=== PATIENT | female | born 2000 | race Caucasian/White ===

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

== ENCOUNTER 2022-10-01 06:09 | Emergency (ER) | payer SELFPAY ==
[2022-10-01] MEDS ORDERED: Lactated Ringers 1,000 ML IV SCH (07:15)
[2022-10-01 08:17] LABS: A/G RATIO 0.9 (0.9-1.6); ALBUMIN 3.4 g/dL (3.4-5.0); BILIRUBIN TOTAL 0.2 mg/dL (0.2-1.0); CALCIUM 9.5 mg/dL (8.5-10.1); CARBON DIOXIDE,CO2 22.3 mmol/L (21.0-32.0); CREATININE 0.9 mg/dL (0.6-1.0); EST CRCL DRUG DOSING (CG) 81.79 mL/min; POTASSIUM,K 3.8 mmol/L (3.5-5.1); PROTEIN TOTAL,TP 7.1 g/dL (6.4-8.2)
[2022-10-01 08:44] LABS: APPEARANCE,URINE CLEAR; BILIRUBIN,URINE NEGATIVE (NEGATIVE); COLOR,URINE YELLOW; GLUCOSE,URINE NEGATIVE (NEGATIVE); KETONES,URINE NEGATIVE (NEGATIVE); LEUKOCYTE ESTERASE,URINE SMALL (NEGATIVE); NITRITE,URINE NEGATIVE (NEGATIVE); OCCULT BLOOD,URINE NEGATIVE (NEGATIVE); PH,URINE 5.5 (5.0-8.0); PROTEIN,URINE NEGATIVE (NEGATIVE); UROBILINOGEN,URINE 0.2 EU/dL (<2.0)
[2022-10-01 08:55] LABS: RBC,URINE NONE SEEN (0-2/HPF); WBC,URINE 0-2 (0-5/HPF)
[2022-10-01 08:56] LABS: BACTERIA,URINE 1+ (NEGATIVE); EPITHELIAL CELLS,URINE FEW (NONE-FEW); MUCUS,URINE LIGHT (NONE-MOD)
== END 2022-10-01 10:31 | disposition home or self-care (01) ==
LOC: MW.ED 06:09
DX: O99.891 Other specified diseases and conditions complicating pregnancy (principal); R42 Dizziness and giddiness; Z3A.14 14 weeks gestation of pregnancy
CPT/HCPCS: 36415; 80053; 81001; 87086; 93005; 96360; 99284; J7120

== ENCOUNTER 2023-04-02 10:31 | Inpatient (IN) | payer MEDICAID ==
[2023-04-02] MEDS ORDERED: Sodium Chloride 0.9% 2.5 ML Syringe FLUSH PRN (11:21)
[2023-04-02] MEDS ORDERED: Carboprost Tromethamine 250 MCG/1 mL Vial IM PRN (11:21)
[2023-04-02] MEDS ORDERED: Water For Irrigation,Sterile 1,000 ML Container IRR PRN (11:21)
[2023-04-02] MEDS ORDERED: Misoprostol 200 MCG Tab PO PRN (11:21)
[2023-04-02] MEDS ORDERED: Tranexamic Acid IN NACL,ISO-OS 1,000 MG in Premix Bag 1 BAG IV PRN ×2 (11:21)
[2023-04-02] MEDS ORDERED: Lidocaine 1% 50 ML MDV INJECT PRN (11:21)
[2023-04-02] MEDS ORDERED: Nalbuphine 10 MG/0.5 ML Syringe IVPUSH PRN (11:21)
[2023-04-02] MEDS ORDERED: Sodium Chloride 0.9% 20 ML SDV IV PRN (11:21)
[2023-04-02] MEDS ORDERED: Methylergonovine 0.2 MG/1 ML Amp IM PRN (11:21)
[2023-04-02] MEDS ORDERED: Ondansetron 4 MG/2 ML SDV IVPUSH PRN (11:21)
[2023-04-02] MEDS ORDERED: Sodium Chloride 0.9% 10 ML Syringe FLUSH PRN (11:21)
[2023-04-02] MEDS ORDERED: Oxytocin/0.9 % Sodium Chloride 30 UNIT/500 ML BAG IV SCH (11:30)
[2023-04-02 12:27] LABS: HEMATOCRIT 36.8 % (37.0-47.0); HEMOGLOBIN 12.8 g/dL (12.0-16.0); MEAN CORPUSCULAR HGB CONC 34.8 g/dL (32.0-36.0); MEAN CORPUSCULAR VOLUME 83.3 fL (83.0-99.0); MEAN PLATELET VOLUME 12.2 fL (9.4-12.3); PLATELET COUNT,PLT 237 K/uL (150-400); RED BLOOD CELL COUNT 4.42 M/uL (4.10-5.30); WHITE BLOOD CELL COUNT,WBC 14.19 K/uL (3.9-11.3)
[2023-04-02] MEDS ORDERED: Dinoprostone 10 MG Insert VAG PRN (12:46)
[2023-04-02] MEDS ORDERED: Terbutaline 1 MG/ML SDV SUBCUT PRN (12:46)
[2023-04-02] MEDS: Lactated Ringers 1,000 ML IV SCH ×2 (14:03→18:20)
[2023-04-03] MEDS: Lactated Ringers 1,000 ML IV SCH ×3 (00:38→12:01)
[2023-04-03] MEDS ORDERED: Oxytocin/0.9 % Sodium Chloride 30 UNIT/500 ML BAG IV SCH (02:45)
[2023-04-03] MEDS ORDERED: Lanolin 100% Cream 7 GM Tube TOP PRN (15:59)
[2023-04-03] MEDS ORDERED: Witch Hazel Medicated Pads 40/Jar TOP PRN (15:59)
[2023-04-03] MEDS ORDERED: oxyCODONE 5 MG Tab PO PRN (15:59)
[2023-04-03] MEDS ORDERED: Ibuprofen 800 MG Tab PO PRN (15:59)
[2023-04-03] MEDS ORDERED: Benzocaine/Menthol 20%-0.5% Spray 78 GM Cannister TOP PRN (15:59)
[2023-04-03] MEDS ORDERED: Docusate Sodium 100 MG Cap PO PRN (15:59)
[2023-04-03 16:06] LABS: PH,UMBILICAL ARTERIAL 7.289 (7.18-7.38); PH,UMBILICAL VENOUS 7.313 (7.25-7.45)
[2023-04-03] MEDS: Acetaminophen 500 MG Tab PO PRN (20:30)
[2023-04-04] MEDS: Acetaminophen 500 MG Tab PO PRN ×3 (02:17→15:50)
[2023-04-04 06:52] LABS: HEMATOCRIT 27.3 % (37.0-47.0); HEMOGLOBIN 9.3 g/dL (12.0-16.0)
== END 2023-04-04 20:05 | disposition home or self-care (01) | DRG 806 ==
LOC: MW.OB 10:31 → INTOOBSV 10:31 → OBSVTOIN 10:31 → UNDOADMOB 10:31 → OBSVTOIN 04-03 15:13 → MW.OB 04-03 15:13 → UNDODISIN 04-04 20:05
PROVIDERS: ADMIT Obstetrics & Gynecology; ATTEND Obstetrics & Gynecology
PROC: 10E0XZZ Delivery of Products of Conception, External Approach (ICD-10-PCS; principal; 2023-04-02)
PROC: 0KQM0ZZ Repair Perineum Muscle, Open Approach (ICD-10-PCS; 2023-04-02)
PROC: 10907ZC Drainage of Amniotic Fluid, Therapeutic from Products of Conception, Via Natural or Artificial Opening (ICD-10-PCS; 2023-04-02)
PROC: 3E033VJ Introduction of Other Hormone into Peripheral Vein, Percutaneous Approach (ICD-10-PCS; 2023-04-02)
PROC: 3E0R3BZ Introduction of Anesthetic Agent into Spinal Canal, Percutaneous Approach (ICD-10-PCS; 2023-04-02)
PROC: 00HU33Z Insertion of Infusion Device into Spinal Canal, Percutaneous Approach (ICD-10-PCS; 2023-04-02)
DX: O48.0 Post-term pregnancy (principal); O41.03X0 Oligohydramnios, third trimester, not applicable or unspecified; Z37.0 Single live birth; O99.214 Obesity complicating childbirth; O42.02 Full-term premature rupture of membranes, onset of labor within 24 hours of rupture; O70.1 Second degree perineal laceration during delivery; O76 Abnormality in fetal heart rate and rhythm complicating labor and delivery; Z3A.40 40 weeks gestation of pregnancy; Z56.0 Unemployment, unspecified
CPT/HCPCS: 36410; 36415; 59025; 59409; 82803; 82947; 85014; 85018; 85027; 86592; 86850; 86900; 86901; A9270-GY; J2001; J2300; J2590; J7120

== ENCOUNTER 2025-02-25 13:05 | Emergency (ER) | payer BC | END 2025-02-25 14:34 | disposition home or self-care (01) | LOC: MW.ED 13:05 → MERGE 13:05 → MW.ED 14:34 | DX: O99.891 Other specified diseases and conditions complicating pregnancy (principal); R06.02 Shortness of breath; Z3A.29 29 weeks gestation of pregnancy | CPT/HCPCS: 93005; 93010; 99282; 99284 ==